=== PATIENT | female | born 1990 | race Caucasian/White ===

== ENCOUNTER → 2016-08-18 | Outpatient (CLI) | payer BC ==
[~2016-08-18] MED LIST: BCPILLS PO
[2016-08-21 12:10] LABS: CHLAMYDIA TRACH RNA*** NOT DETECTED (NOT DETECTED); GC (NEIS GONORRHOEAE)RNA** NOT DETECTED (NOT DETECTED)
== END | disposition home or self-care (01) ==
LOC: C.LABSPEC 11:07
PROVIDERS: ATTEND Obstetrics & Gynecology
DX: Z01.419 Encounter for gynecological examination (general) (routine) without abnormal findings (principal)

== ENCOUNTER → 2016-08-18 | Outpatient (CLI) | payer BC | END | disposition home or self-care (01) | LOC: C.PAPS 12:21 | PROVIDERS: ATTEND Obstetrics & Gynecology | DX: Z01.419 Encounter for gynecological examination (general) (routine) without abnormal findings (principal); N87.0 Mild cervical dysplasia ==

== ENCOUNTER 2017-07-18 11:30 | Emergency (ER) | payer BC, OTHER ==
[~2017-07-18] VITALS: Ht 165.1 cm; Wt 63.7 kg
[2017-07-18 11:41] VITALS: TEMP 36.8; Ht 165.1 cm; Wt 63.7 kg
[2017-07-18] MEDS ORDERED: ONDANSETRON INJ 2 MG/ML 2 ML VIAL IV STA (12:09)
[2017-07-18] MEDS ORDERED: SODIUM CHLORIDE 0.9% 1000ML 1,000 ML IV STA (12:09)
[2017-07-18 12:33] LABS: BASO % 0.2 %; BASO ABS # 0.02 K/uL (0-0.2); EOS % 0.7 %; EOS ABS # 0.07 K/uL (0-0.5); HEMOGLOBIN 14.4 g/dL (12.0-16.0); IG# 0.02 K/uL (0.00-0.02); LYMPH % 13.9 %; LYMPH ABS # 1.31 K/uL (1.2-3.4); MEAN CELL VOLUME 90.5 fL (80-100); MEAN CORPUSCULAR HGB CONC 34.3 g/dl (32-36); MEAN PLATELET VOLUME 9.5 fL (7.4-10.4); MONO % 5.2 %; MONO ABS # 0.49 K/uL (0.11-0.59); NEUT % 79.8 %; NEUT ABS # 7.49 K/uL (1.4-6.5); PLATELET COUNT 203 K/uL (130-400); RED CELL DISTRIBUTION WIDTH CV 12.4 % (11.5-14.5); RED CELL DISTRIBUTION WIDTH SD 40.9 fL (36.4-46.3)
--- NOTE | 2017-07-18 12:45 | DIAGNOSTIC IMAGING REPORT ---
TWO VIEW CHEST CLINICAL HISTORY: Generalized abdominal pain. FINDINGS: PA and lateral chest radiographs are correlated with chest CT dated 09/27/2013. The cardiomediastinal silhouette is unremarkable. The lungs and pleural spaces are clear. There is no pneumothorax. The bony thorax appears intact. IMPRESSION: No active disease in the chest. Electronically signed by: Rene Lo M.D. 07/18/2017 12:43 PM Dictated Date/Time: 07/18/2017 12:43 PM
[2017-07-18 12:46] LABS: ALBUMIN 4.1 gm/dl (3.4-5.0); CALCIUM 9.2 mg/dl (8.5-10.1); CREATININE 0.78 mg/dl (0.60-1.20); POTASSIUM 3.7 mmol/L (3.5-5.1)
[2017-07-18 12:49] LABS: TOTAL PROTEIN 7.8 gm/dl (6.4-8.2)
[2017-07-18 13:52] VITALS: BP 122/85; PULSE 60; O2SAT 100
--- NOTE | 2017-07-18 13:56 | DIAGNOSTIC IMAGING REPORT ---
GALLBLADDER-ABD LIMITED HISTORY: 26 years-old Female ABDOMINAL PAIN/GI acute generalized abdominal pain COMPARISON: None available TECHNIQUE: Multiple real-time sonographic images of the abdominal right upper quadrant were obtained assessing grayscale appearance and color flow FINDINGS: Pancreas appears unremarkable. The liver is within normal limits without focal mass or intrahepatic biliary ductal dilation identified. Gallbladder demonstrates no shadowing cholelithiasis, wall thickening or pericholecystic fluid. Common bile duct is normal, 4 mm. Imaged right kidney is unremarkable without hydronephrosis. IMPRESSION: Unremarkable right upper quadrant ultrasound without cholelithiasis or sonographic evidence of acute cholecystitis. The above report was generated using voice recognition software. It may contain grammatical, syntax or spelling errors. Electronically signed by: Mike Thomas M.D. 07/18/2017 1:54 PM Dictated Date/Time: 07/18/2017 1:53 PM
[2017-07-18] MEDS ORDERED: PANT40TA PO (14:08)
--- NOTE | 2017-07-18 18:05 | EMERGENCY ROOM VISIT NOTE ---
ED Visit Note First contact with patient: 11:54 Chief Complaint: Epigastric abdominal pain. History of Present Illness: Ms. Barron is a 26 year-old white female who ambulates into the ED complaining of epigastric abdominal pain. Historically patient reports any significant gastrointestinal disorders or abdominal surgeries. Patient reports a acute onset of epigastric abdominal pain that started approximately 3 hours ago. Since that time the pain has been constant but has waxed and waned in intensity. Currently she rates her discomfort 3/10 but does report it has been as high as 7/10. The pain is currently described as cramping. The pain is radiating minimally into the medial borders of the right and left upper quadrant without prominence. She has not identified any aggravating or alleviating factors related to the pain. She has not taken any medications for pain prior to arrival at the hospital. She did report she had moved her bowels and urinated without relief and she attempted to stimulate herself to vomit without relief. Associated with her pain she is nauseated but has not vomited. Patient denies fevers, chills, sweats, skin eruptions, skin color changes, upper respiratory tract symptoms, shortness of breath, chest pain, diarrhea, constipation, rectal bleeding, black/tarry stools, urinary symptoms, hematuria, vaginal bleeding, vaginal discharge, back/flank pain. Review of Systems: As noted above in history of present illness. All body systems were reviewed and found to be negative as noted above. Past Medical History: Upper extremity DVT, ovarian cysts and unspecified rhinoplasty. Current Medications: control. Allergies to Medications: Patient denies Social History: Patient is currently employed; she feels safe in her home environment; she denies tobacco use and admits to alcohol use. Physical Examination: Vital Signs: Date Time Temp Pulse Resp B/P (MAP) Pulse Ox O2 Delivery O2 Flow Rate FiO2 07/18/17 13:52 60 16 122/85 100 Room Air 07/18/17 11:41 36.8 91 16 135/95 97 Room Air GENERAL: 26-year-old female in mild distress due to pain, nontoxic-appearing, afebrile and hemodynamically stable. NEUROLOGICAL: Awake, alert and oriented to person, place and time. Answering questions appropriately and following commands. Normal gait. Good hand eye coordination. SKIN: Warm, dry and pink. No soft tissue eruptions or trauma noted. HEENT: Atraumatic and normocephalic. PERRL. Sclera white and conjunctiva pink. Oral cavity moist and pink. Pharynx is nonerythematous or edematous. Speech normal. No lymphadenopathy. Trachea midline. No jugular venous distention. BACK: No tenderness over the bony spine. No CVA tenderness. THORAX: Lungs sounds are clear to auscultation and equal bilaterally with symmetrical chest wall. No wheezing, rales or rhonchi. No crepitus, tenderness , subcutaneous air or deformities noted. HEART: Regular rate and rhythm. No gallops, rubs or murmurs are appreciated. ABDOMEN: Flat and soft with moderate tenderness in the epigastric area and guarding. Positive bowel sounds in all quadrants. No guarding, rigidity or organomegaly. EXTREMITIES: Moves all extremities well on command and with purpose. All distal neurovascular statuses are intact and equal bilaterally. ED Course: Patient is assessed as noted above. Laboratory Testing: Test 07/18/17 12:10 07/18/17 12:20 Range/Units Urine Color YELLOW Urine Appearance CLEAR CLEAR Urine pH 6.5 4.5-7.5 Urine Specific [place] 1.011 1.000-1.030 Urine Protein NEG NEG Urine Glucose (UA) NEG NEG Urine Ketones NEG NEG Urine Occult Blood NEG NEG Urine Nitrite NEG NEG Urine Bilirubin NEG NEG Urine Urobilinogen NEG NEG Urine Leukocyte Esterase SMALL NEG Urine WBC (Auto) 1-5 0-5 /hpf Urine RBC (Auto) 0-4 0-4 /hpf Urine Hyaline Casts (Auto) 0 0-5 /lpf Urine Epithelial Cells (Auto) 10-20 0-5 /lpf Urine Bacteria (Auto) NEG NEG Urine Test NEG NEG White Blood Count 9.40 4.8-10.8 K/uL Red Blood Count 4.64 4.2-5.4 M/uL Hemoglobin 14.4 12.0-16.0 g/dL Hematocrit 42.0 37-47 % Mean Corpuscular Volume 90.5 80-100 fL Mean Corpuscular Hemoglobin 31.0 25-34 pg Mean Corpuscular Hemoglobin Concent 34.3 32-36 g/dl Platelet Count 203 130-400 K/uL Mean Platelet Volume 9.5 7.4-10.4 fL Neutrophils (%) (Auto) 79.8 % Lymphocytes (%) (Auto) 13.9 % Monocytes (%) (Auto) 5.2 % Eosinophils (%) (Auto) 0.7 % Basophils (%) (Auto) 0.2 % Neutrophils # (Auto) 7.49 1.4-6.5 K/uL Lymphocytes # (Auto) 1.31 1.2-3.4 K/uL Monocytes # (Auto) 0.49 0.11-0.59 K/uL Eosinophils # (Auto) 0.07 0-0.5 K/uL Basophils # (Auto) 0.02 0-0.2 K/uL RDW Standard Deviation 40.9 36.4-46.3 fL RDW Coefficient of Variation 12.4 11.5-14.5 % Immature Granulocyte % (Auto) 0.2 % Immature Granulocyte # (Auto) 0.02 0.00-0.02 K/uL Sodium Level 137 136-145 mmol/L Potassium Level 3.7 3.5-5.1 mmol/L Chloride Level 106 98-107 mmol/L Carbon Dioxide Level 27 21-32 mmol/L Anion Gap 4.0 3-11 mmol/L Blood Urea Nitrogen 8 7-18 mg/dl Creatinine 0.78 0.60-1.20 mg/dl Est Creatinine Clear Calc Drug Dose 99.2 ml/min Estimated GFR () 122.5 Estimated GFR (Non- 105.7 BUN/Creatinine Ratio 10.7 10-20 Random Glucose 87 70-99 mg/dl Calcium Level 9.2 8.5-10.1 mg/dl Total Bilirubin 0.3 0.2-1 mg/dl Direct Bilirubin 0.1 0-0.2 mg/dl Aspartate Amino Transf (AST/SGOT) 16 15-37 U/L Alanine Aminotransferase (ALT/SGPT) 19 12-78 U/L Alkaline Phosphatase 61 45-117 U/L Total Protein 7.8 6.4-8.2 gm/dl Albumin 4.1 3.4-5.0 gm/dl Lipase 113 73-393 U/L Chest X-Rays: Were read by myself and the radiologist shows no acute infiltrates , effusions or pneumothorax. Normal heart silhouette and bony anatomy. Gallbladder Ultrasound: Were reviewed by myself and read by the radiologist and shows a normal-appearing liver, pancreas gallbladder and kidney. No gallbladder wall thickening or shadowing calculi. Patient was hydrated with normal saline and received 4 mg of Zofran IV for nausea; she refused pain medications. Patient was reassessed multiple times during her stay in the emergency department. Patient's case was reviewed with Dr. Giles; he independently assessed the patient we agreed on diagnostic approach, treatment, disposition and plan. Patient was educated about today's findings and instructed on her treatment plan ; she verbalized understanding and agreement with this plan. Clinical Impression: Epigastric abdominal pain. Decision-Making: Initially my differential diagnosis I considered GERD, cholecystitis, esophagitis, gastritis, hepatitis, pancreatitis, constipation and other causes. Disposition: Patient discharged home in stable condition; prior to departure she was reassessed and subjectively reported she was feeling better and rated her discomfort 1/10. Plan: Patient was encouraged you 650 mg of acetaminophen every 6 hours as needed for pain. Patient was prescribed Protonix 40 mg once a day. Patient was encouraged to avoid gastric irritants including NSAID medications. Patient was encouraged to follow-up with her PCP for recheck if no better in 3- 4 days for possible referral to gastroenterology for EGD. Patient was encouraged return the ED for worsening/uncontrolled pain, uncontrolled vomiting, bloody vomitus, bloody stools, shortness of breath, sensations of heart reason, fever or any new/concerning symptoms.
== END 2017-07-18 14:21 | disposition home or self-care (01) ==
LOC: C.EDB 11:31
DX: R10.13 Epigastric pain (principal); R11.0 Nausea; Z79.3 Long term (current) use of hormonal contraceptives